=== PATIENT | female | born 1990 | race Caucasian/White ===

== ENCOUNTER → 2018-09-11 | Outpatient (CLI) | payer BC | LOC: COL.RAD 12:42 | DX: E05.90 Thyrotoxicosis, unspecified without thyrotoxic crisis or storm (principal) ==

== ENCOUNTER 2019-01-24 22:10 | Outpatient (CLI) | payer BC, MEDICAID ==
[~2019-01-24] VITALS: Ht 165.1 cm; Wt 59.1 kg
--- NOTE | 2019-01-24 22:20 | NUR ---
G6L3 at 38 weeks and 6 days arrives to unit with complaint of "pain every 5 minutes" Pt reports that usually her contractions will go away but tonight they have not. Pt reports good movement, denies LOF or vaginal bleeding. P denies headaches, blurry vision, or RUQ pain. Pt has a history of 36 week stillborn, 36 week delivery, and 2 term vaginal deliveries. Pt oriented to room, call light within reach, bed in low and locked position. EFM and toco explained and applied. Plan of care reviewed with patient. Vital signs obtained. Admission assessment started. 2225 - SVE
[2019-01-24 22:45] VITALS: BP 105/72; PULSE 96; TEMP 98.5
[2019-01-24] MEDS ORDERED: TAPAZOLE10 MG PO (22:46)
--- NOTE | 2019-01-24 23:25 | NUR ---
SVE /-3, unchanged from previous exam. Pt comfortable with being discharged home at this time.
--- NOTE | 2019-01-24 23:35 | NUR ---
Discharge instructions and return precautions reviewed with patient, pt verbalized understanding. All questions answered. Pt seen ambulating off unit with staff.
== END 2019-01-24 23:35 | disposition home or self-care (01) ==
LOC: LDRO 22:10
DX: O62.9 Abnormality of forces of labor, unspecified (principal); Z3A.38 38 weeks gestation of pregnancy

== ENCOUNTER 2019-01-30 07:00 | Inpatient (IN) | payer BC, MEDICAID ==
[~2019-01-30] VITALS: Ht 165.1 cm; Wt 59.1 kg
[2019-01-30] VITALS (20 sets, daily range): BP systolic 93–1112; BP diastolic 55–73; PULSE 62–100; TEMP 97.9–99
[~2019-01-30 07:00] MED LIST: TAPAZOLE10 MG PO
--- NOTE | 2019-01-30 07:10 | NUR ---
Patient ambulatory to LR5, changed into gown, FHR/TOCO monitors placed and explained. Patient denies regular contractions/leaking of fluid/vaginal bleeding. Plan of care discussed. 0720: IV attempted by CRISTY PHILLIPS. 0725: IV placed in right forearm, blood drawn and sent to lab, LR infusing. Assessment completed and consents signed. 0750:Patient off monitor to void. Dr. Andrade at nurses station reviewing strip and orders to start pitocin. 0754: Dr Andrade at bedside and assessing patient/FHR strip 0755: SVE per physician /-2 and AROM at this time with clear fluid noted. Dr. andrade discusses plan of care and patient requesting epidural. Winston DE LA TORRE notified and LR bolus started. 0823: Patient sat up for epidural placement, Winston DE LA TORRE at bedside for procedure. 0831: Single shot given and patient tolerates well. 0835: Test dose given and patient tolerates well. 0839: Patient repositioned wedged right. 0900: FHR tracing recurrent subtle late decelerations. LR bolus started and patient repositioned.
[2019-01-30] MEDS ORDERED: PRENATAL MVI (07:16)
[2019-01-30 08:03] LABS: BASO % 0.4 % (0.0-2.0); EOS # 0.1 (0.0-0.7); EOS % 1.1 % (0-4.0); GRAN # 5.7 (1.4-6.5); GRAN % 69.5 % (42.2-75.2); HEMATOCRIT 36.3 % (37.0-47.0); HEMOGLOBIN 10.8 g/dl (12.5-16.0); LYMPH # 1.8 (1.2-3.4); LYMPH % 21.7 % (20.0-51.0); MEAN CELL VOLUME 87 fl (80.0-100.0); MEAN CORPUSCULAR HEMOGLOBIN 26 pg (27.0-31.0); MEAN CORPUSCULAR HGB CONC 30 g/dl (33.0-37.0); MEAN PLATELET VOLUME 10.7 fl (7.4-10.4); MONO # 0.6 (0.1-0.6); MONO % 6.7 % (1.7-9.3); PLATELET COUNT 276 K/mm3 (130-400); RED BLOOD COUNT 4.18 M/mm3 (4.10-5.30); REDCELL DISTRIBUTION WIDTH-CV 14.4 % (11.5-14.5)
--- NOTE | 2019-01-30 08:56 | NUR ---
Blood pressure-104/59. 0900-97/58 and recheck 99/61, patient denies any symptoms. 0904: Blood pressure-102/55 and FHR continues to have recurrent late decelerations. 0906: Ephedrine 10mg given IV. 0910: Blood Pressure- 101/60 0915: Blood pressure-112/66 0920: Patient repositioned and jamison catheter placed, patient tolerates well. SVE:5-6/80/-2
--- NOTE | 2019-01-30 10:00 | NUR ---
FHR having recurrent variable decelerations. Patient repostioned. 1030: SVE-/[address] Andrade called and notified. 1040: Blackwood catheter removed and patient tolerates well. Dr. Andrade at bedside, bed taken apart, and patient set up for delivery. SVE- per physician. 1044: Patient begins to push with contractions per Dr. Huertas order. 1047: Spontaneous delivery of head, head of bed lowered and patient legs pushed back and shoulder dystocia noted for 30 seconds. Shoulders delivered and bulb syringed per physician. Cord clamped and cut by Dr. Andrade. Infant to patient abdomen and Arlette OSWALD assumes care of infant. 1049: Spontaneous delivery of placenta and pitocin started per protocol. Perineum intact, bed put back together, dallin care done, patient repositioned, and ice pack to perineum. Fundal massage done, small clots expressed, moderate bleeding, fundus firms up. seconds,
--- NOTE | 2019-01-30 15:10 | NUR ---
Epidural catheter removed and pericare done, new gown/pad/undies on. Patient ambulates to new room, oriented to , plan of care discussed. Will continue to monitor.
[2019-01-31 00:40] VITALS: BP 103/71; PULSE 77
[2019-01-31 05:46] VITALS: BP 118/77; PULSE 72
[2019-01-31] MEDS ORDERED: MOTRIN 800800 MG/TAB PO (08:37)
[2019-01-31] MEDS ORDERED: TAPAZOLE10 MG PO (08:37)
[2019-01-31 08:52] VITALS: BP 97/66; PULSE 87; TEMP 98.1
--- NOTE | 2019-01-31 09:10 | NUR ---
Initial visit; Patient thanked Belt Brander for offering congratulations and God's blessings for the of her son. Belt Brander thanked family for choosing [facility].
--- NOTE | 2019-01-31 15:30 | NUR ---
Discharge instructions given, pt verbalizes understanding. No further questions noted. bands matched and hugs tag removed.
== END 2019-01-31 15:45 | disposition home or self-care (01) | DRG 807 ==
LOC: LDR 07:00 → OB 07:00 → LDR 07:14 → OB 15:00
PROVIDERS: ADMIT Obstetrics & Gynecology
PROC: 10E0XZZ Delivery of Products of Conception, External Approach (ICD-10-PCS; principal; 2019-01-30)
PROC: 3E033VJ Introduction of Other Hormone into Peripheral Vein, Percutaneous Approach (ICD-10-PCS; 2019-01-30)
PROC: 10907ZC Drainage of Amniotic Fluid, Therapeutic from Products of Conception, Via Natural or Artificial Opening (ICD-10-PCS; 2019-01-30)
DX: O99.284 Endocrine, nutritional and metabolic diseases complicating childbirth (principal); Z37.0 Single live birth; E05.90 Thyrotoxicosis, unspecified without thyrotoxic crisis or storm; Z3A.39 39 weeks gestation of pregnancy; O66.0 Obstructed labor due to shoulder dystocia; Z28.21 Immunization not carried out because of patient refusal; E06.3 Autoimmune thyroiditis
CPT/HCPCS: J2590; J2795; J7120

== ENCOUNTER 2020-05-15 16:06 | Emergency (ER) | payer BC, MEDICAID ==
[~2020-05-15] VITALS: Ht 167.6 cm; Wt 48.2 kg
[~2020-05-15 16:06] MED LIST changes: +MOTRIN 800800 MG/TAB PO; +PRENATAL MVI
[2020-05-15 16:08] VITALS: TEMP 102
[2020-05-15 17:22] LABS: COLLECTION METHOD CLEAN CATCH
[2020-05-15 17:26] LABS: HEMATOCRIT 39.4 % (37.0-47.0); HEMOGLOBIN 13.1 g/dl (12.5-16.0); MEAN CELL VOLUME 86 fl (80.0-100.0); MEAN CORPUSCULAR HEMOGLOBIN 29 pg (27.0-31.0); MEAN CORPUSCULAR HGB CONC 33 g/dl (33.0-37.0); PLATELET COUNT 208 K/mm3 (130-400); RED BLOOD COUNT 4.57 M/mm3 (4.10-5.30); REDCELL DISTRIBUTION WIDTH-CV 13.3 % (11.5-14.5)
[2020-05-15 17:30] LABS: MUCOUS Present /lpf; PH 5 (5-8); SQUAMOUS EPITHELIAL 0-2 /hpf; URINE APPEARANCE Clear; URINE BACTERIA None Seen /hpf; URINE BILIRUBIN Negative (NEGATIVE); URINE BLOOD 2+ (NEGATIVE); URINE COLOR Yellow; URINE GLUCOSE Negative (NEGATIVE); URINE KETONE Negative (NEGATIVE); URINE LEUKOCYTE ESTERASE 2+ (NEGATIVE); URINE NITRATE Negative (NEGATIVE); URINE PROTEIN(semi-quant) Negative (NEGATIVE); URINE UROBILINOGEN Negative (NEGATIVE)
[2020-05-15 17:45] LABS: BILIRUBIN,TOTAL 0.6 mg/dL (0.0-1.0); CALCIUM 8.9 mg/dL (8.4-10.2); CREATININE, serum 0.45 (0.52-1.25); POTASSIUM 3.6 mmol/L (3.4-5.0); TOTAL PROTEIN 7.5 gm/dL (6.4-8.2)
[2020-05-15 18:07] LABS: BAND 7 % (0-10); LYMPHOCYTE 2 % (20.0-51.0); NEUTROPHILS 89 % (42.0-75.2); PLATELET ESTIMATE NORMAL (NORMAL)
[2020-05-15 20:39] VITALS: BP 110/65; PULSE 116
== END 2020-05-15 20:44 | disposition short-term general hospital (02) ==
LOC: COL.ER 16:06
PROVIDERS: Family Medicine
DX: O23.01 Infections of kidney in pregnancy, first trimester (principal); O99.281 Endocrine, nutritional and metabolic diseases complicating pregnancy, first trimester; E86.0 Dehydration; Z20.828 Contact with and (suspected) exposure to other viral communicable diseases; Z3A.11 11 weeks gestation of pregnancy
CPT/HCPCS: J0696; J2550; J7030; J7120

== ENCOUNTER 2020-06-17 08:59 | Emergency (ER) | payer MEDICAID ==
[~2020-06-17] VITALS: Ht 167.6 cm; Wt 48.6 kg
[2020-06-17 09:08] VITALS: BP 104/71; TEMP 98.4
[2020-06-17 09:19] LABS: COLLECTION METHOD CLEAN CATCH
[2020-06-17 09:34] LABS: MUCOUS Present /lpf; PH 5 (5-8); URINE APPEARANCE Hazy; URINE BACTERIA Rare /hpf; URINE BILIRUBIN Negative (NEGATIVE); URINE BLOOD 3+ (NEGATIVE); URINE COLOR Yellow; URINE GLUCOSE Negative (NEGATIVE); URINE KETONE Negative (NEGATIVE); URINE LEUKOCYTE ESTERASE 1+ (NEGATIVE); URINE NITRATE Negative (NEGATIVE); URINE PROTEIN(semi-quant) 1+ (NEGATIVE); URINE RBC >50 /hpf; URINE UROBILINOGEN Negative (NEGATIVE)
[2020-06-17] MEDS ORDERED: CEFTIN500 MG PO (10:22)
[2020-06-17 10:32] VITALS: PULSE 97
== END 2020-06-17 10:26 | disposition home or self-care (01) ==
LOC: COL.ER 08:59
PROVIDERS: Nurse Practitioner
DX: N39.0 Urinary tract infection, site not specified (principal); Z88.1 Allergy status to other antibiotic agents; Z88.2 Allergy status to sulfonamides; Z88.6 Allergy status to analgesic agent